=== PATIENT | male | born 1965 | race Caucasian/White ===

== ENCOUNTER 2020-04-16 10:26 | Inpatient (IN) | payer BC ==
[~2020-04-16] VITALS: Ht 182.9 cm; Wt 97.6 kg
[2020-04-16 11:33] LABS: BASOPHILS % (AUTO) 1 % (0-1); EOSINOPHILS % (AUTO) 0 % (1-7); LYMPHOCYTES % (AUTO) 26 % (22-44); MEAN CORPUSCULAR HEMOGLOBIN 32.5 pg (27.5-34.5); MEAN CORPUSCULAR HGB CONC 36.1 g/dL (33.2-36.2); MEAN PLATELET VOLUME 7.2 fL (7.4-10.4); MONOCYTES % (AUTO) 7 % (2-9); NEUTROPHILS % (AUTO) 67 % (42-75); PLATELET COUNT 215 x10^3/uL (130-400); RED BLOOD COUNT 4.69 x10^6/uL (4.38-5.82); RED CELL DISTRIBUTION WIDTH 12.4 % (9.4-14.8)
[2020-04-16 11:44] LABS: MD NO
[2020-04-16 11:45] LABS: ALBUMIN 3.5 g/dL (3.4-5.0); ANION GAP 8 mmol/L (5-15); CALCIUM 8.6 mg/dL (8.5-10.1); CHLORIDE 110 mmol/L (98-107)
[2020-04-16 11:48] LABS: ALANINE AMINOTRANSFERASE 86 U/L (12-78); ALKALINE PHOSPHATASE 96 U/L (45-117); BILIRUBIN,TOTAL 0.6 mg/dL (0.2-1.0); CREATININE 1.01 mg/dL (0.7-1.3); TOTAL PROTEIN 8.1 g/dL (6.4-8.2)
--- NOTE | 2020-04-16 12:00 | NUR ---
assumed care of pt. pt here for weakness, body aches, SOB and cough for a few days. pt reports that he has some family members that do not live with him that he has had exposure to that have tested COVID+ pt reports that he has been having a productive cough and that his is sick at home as well pt is hypoxic on RA, placed on O2 @ 2L [place] lab has been to bedside
[2020-04-16] MEDS ORDERED: CEFTRIAXONE PMX 1GM/50ML 50 ML IVPB ONE (13:00)
[2020-04-16] MEDS ORDERED: AZITHROMYCIN 500 MG in SODIUM CHLORIDE 0.9% 250 ML IV ONE (13:00)
[2020-04-16 13:18] LABS: D-DIMER (DIC) 0.54 ug/mlFEU (0.00-0.52); PROTIME 9.9 Seconds (9.6-11.5)
[2020-04-16 13:24] LABS: C-REACTIVE PROTEIN, QUANT 7.94 mg/dL (0.02-0.49)
--- NOTE | 2020-04-16 13:49 | NUR ---
pt to have ABX infusion report to Aishwarya DURAN for lunch
[2020-04-16] MEDS ORDERED: CEFTRIAXONE PMX 1GM/50ML 50 ML ONE (14:04)
--- NOTE | 2020-04-16 15:00 | NUR ---
pt resting in position of comfort. no family at bedside. awaiting admit orders and bed assignment
[2020-04-16] MEDS ORDERED: SODIUM CHLORIDE FLUSH 10ML SYR IVF PRN (16:00)
[2020-04-16] MEDS ORDERED: DOXYCYCLINE 100MG TABLET PO ONE (16:30)
[2020-04-16] MEDS ORDERED: TRAZODONE 50MG TABLET PO PRN (16:30)
[2020-04-16] MEDS ORDERED: ONDANSETRON 2MG/ML, 2ML IVPush PRN (16:30)
[2020-04-16] MEDS ORDERED: ENOXAPARIN 40 MG/0.4 ML SQ SCH (16:30)
[2020-04-16] MEDS ORDERED: GUAIFENESIN/DM 200-20MG, 10ML UDC PO PRN (16:30)
[2020-04-16] MEDS ORDERED: ACETAMINOPHEN 325 MG TABLET PO PRN (16:30)
--- NOTE | 2020-04-16 16:40 | NUR ---
pt has been placed on [employer] for comfort. awaiting delivery of hospital bed. pt updated on POC
[2020-04-16] MEDS ORDERED: REMDESIVIR 200 MG in SODIUM CHLORIDE 0.9% 250 ML IVPB ONE (17:30)
[2020-04-16] MEDS ORDERED: ACETAMINOPHEN 325 MG TABLET ONE (17:53)
--- NOTE | 2020-04-16 18:10 | NUR ---
ABX infusing. pt dozing intermittently. positioning for comfort and lights dimmed per request. pt medicated for fever pt education regarding pending Remdesivir infusion, pt agrees to receive medication
--- NOTE | 2020-04-16 19:09 | NUR ---
pt resting in position of comfort. awaiting bed assignment. no family at bedside report to Darcie DURAN
--- NOTE | 2020-04-16 19:10 | NUR ---
report received from micki lopes
[2020-04-16] MEDS ORDERED: KETOROLAC 30 MG/1 ML IM PRN (19:30)
[2020-04-16] MEDS ORDERED: MELATONIN 5 MG TABLET ONE (19:50)
[2020-04-16] MEDS ORDERED: GUAIFENESIN ER 600 MG TABLET ONE (19:50)
[2020-04-16] MEDS ORDERED: ASCORBIC ACID 500 MG TABLET ONE (19:50)
[2020-04-16] MEDS ORDERED: DEXAMETHASONE 4 MG/ML, 1ML ONE (19:50)
[2020-04-16] MEDS ORDERED: DOXYCYCLINE 100MG TABLET ONE (19:50)
[2020-04-16] MEDS: ASCORBIC ACID 500 MG TABLET PO SCH (20:00)
[2020-04-16] MEDS: MELATONIN 5 MG TABLET PO SCH (20:01)
[2020-04-16] MEDS: DEXAMETHASONE 4 MG/ML, 1ML IVPush SCH (20:01)
[2020-04-16] MEDS: GUAIFENESIN ER 600 MG TABLET PO SCH (20:01)
--- NOTE | 2020-04-16 20:14 | NUR ---
pt resting in [facility] on [facility] mattress. consent signed for remdisivir ivpb.
[2020-04-16] MEDS ORDERED: ENOXAPARIN 40 MG/0.4 ML ONE (21:29)
[2020-04-16] MEDS ORDERED: ENOXAPARIN 60 MG/0.6 ML ONE (21:42)
[2020-04-16] MEDS: ENOXAPARIN 60 MG/0.6 ML SQ SCH (21:43)
--- NOTE | 2020-04-16 21:46 | NUR ---
consent signed and placed with paper chart
[2020-04-16] MEDS ORDERED: OMNIPAQUE 350 MG/ML, 75ML BOTTLE ONE (22:00)
--- NOTE | 2020-04-16 22:30 | NUR ---
pt resting no needs at this time
--- NOTE | 2020-04-16 23:30 | NUR ---
pt resting, no needs at this time
--- NOTE | 2020-04-17 00:21 | NUR ---
pt resting, no needs at this time
--- NOTE | 2020-04-17 02:17 | NUR ---
pt sleeping, no needs at this time
--- NOTE | 2020-04-17 04:20 | NUR ---
pt on hospital bed. urinal provided 800 ml of dark/orange concentrated urone out
--- NOTE | 2020-04-17 05:30 | NUR ---
pt resting in bed, no needs at this time
[2020-04-17 05:45] LABS: ALBUMIN 2.9 g/dL (3.4-5.0); ANION GAP 5 mmol/L (5-15); CALCIUM 8.7 mg/dL (8.5-10.1); CHLORIDE 109 mmol/L (98-107)
[2020-04-17 05:48] LABS: ALANINE AMINOTRANSFERASE 72 U/L (12-78); ALKALINE PHOSPHATASE 84 U/L (45-117); BILIRUBIN,TOTAL 0.5 mg/dL (0.2-1.0); CREATININE 0.86 mg/dL (0.7-1.3); TOTAL PROTEIN 7.4 g/dL (6.4-8.2)
--- NOTE | 2020-04-17 07:10 | NUR ---
REPORT GIVEN TO KRISTI DURAN
--- NOTE | 2020-04-17 07:13 | NUR ---
[facility] HAND-OFF REPORT RECEIVED FROM ROGER DAWSON. ASSUMING CARE OF PATIENT.
[2020-04-17] MEDS ORDERED: DEXAMETHASONE 4 MG/ML, 1ML ONE (08:07)
[2020-04-17] MEDS ORDERED: ASCORBIC ACID 500 MG TABLET ONE (08:07)
[2020-04-17] MEDS ORDERED: CHOLECALCIFEROL 5,000u TAB ONE (08:07)
[2020-04-17] MEDS ORDERED: ZINC SULFATE 220 MG CAPSULE ONE (08:07)
[2020-04-17] MEDS ORDERED: GUAIFENESIN ER 600 MG TABLET ONE (08:08)
[2020-04-17] MEDS: CHOLECALCIFEROL 5,000u TAB PO SCH (08:15)
[2020-04-17] MEDS: DEXAMETHASONE 4 MG/ML, 1ML IVPush SCH (08:15)
[2020-04-17] MEDS: ASCORBIC ACID 500 MG TABLET PO SCH ×2 (08:15→18:45)
[2020-04-17] MEDS: GUAIFENESIN ER 600 MG TABLET PO SCH ×2 (08:15→20:39)
[2020-04-17] MEDS: ZINC SULFATE 220 MG CAPSULE PO SCH (08:15)
--- NOTE | 2020-04-17 08:20 | NUR ---
PT MEDICATED WITH MORNING MEDS. VS UPDATED AND WNL. PT REMAINS IN 3L O2 VIA NASAL CANNULA. PT RESTING WITH NO COMPLAINTS.
--- NOTE | 2020-04-17 10:47 | NUR ---
INCENTIVE SPIROMETER GIVEN TO PATIENT AND PATIENT INSTRUCTED ON USE.
[2020-04-17] MEDS ORDERED: CEFTRIAXONE PMX 1GM/50ML 50 ML ONE (11:35)
[2020-04-17] MEDS: CEFTRIAXONE PMX 1GM/50ML 50 ML IV SCH (11:38)
--- NOTE | 2020-04-17 12:27 | NUR ---
LUNCH SERVED TO PATIENT. ENCOURAGED PATIENT TO DRINK MORE WATER. PT RESTING WITH NO COMPLAINTS. CALL BUTTON WITHIN REACH.
[2020-04-17] MEDS ORDERED: GUAIFENESIN/DM 200-20MG, 10ML UDC ONE (12:30)
--- NOTE | 2020-04-17 13:49 | NUR ---
[facility] TELEPHONE HAND-OFF REPORT GIVEN TO ROGER TIM. PT READY TO GO HOSPITAL ROOM.
[2020-04-17] MEDS ORDERED: MULT-658 PO (15:10)
[2020-04-17] MEDS ORDERED: UBID1CAP43 PO (15:10)
[2020-04-17] MEDS ORDERED: FLUT9.9S16 NS (15:10)
[2020-04-17 15:23] VITALS: BP 129/68
[2020-04-17] MEDS: REMDESIVIR 100 MG in SODIUM CHLORIDE 0.9% 250 ML IVPB SCH (18:45)
[2020-04-17 20:27] VITALS: BP 103/64
[2020-04-17] MEDS: MELATONIN 5 MG TABLET PO SCH (20:39)
[2020-04-17] MEDS: ENOXAPARIN 60 MG/0.6 ML SQ SCH (20:40)
[2020-04-18 00:21] VITALS: BP 111/71
[2020-04-18 05:59] LABS: ALBUMIN 2.8 g/dL (3.4-5.0); ANION GAP 3 mmol/L (5-15); CALCIUM 8.7 mg/dL (8.5-10.1); CHLORIDE 112 mmol/L (98-107)
[2020-04-18 06:02] LABS: ALANINE AMINOTRANSFERASE 60 U/L (12-78); ALKALINE PHOSPHATASE 70 U/L (45-117); BILIRUBIN,TOTAL 0.4 mg/dL (0.2-1.0); CREATININE 0.91 mg/dL (0.7-1.3); TOTAL PROTEIN 6.8 g/dL (6.4-8.2)
[2020-04-18 06:46] VITALS: BP 97/47
[2020-04-18] MEDS: DEXAMETHASONE 4 MG/ML, 1ML IVPush SCH (09:00)
[2020-04-18] MEDS ORDERED: DEXAMETHASONE 4 MG/ML, 5ML ONE (09:11)
[2020-04-18] MEDS: ASCORBIC ACID 500 MG TABLET PO SCH ×2 (09:18→18:03)
[2020-04-18] MEDS: ZINC SULFATE 220 MG CAPSULE PO SCH (09:18)
[2020-04-18] MEDS: GUAIFENESIN ER 600 MG TABLET PO SCH ×2 (09:18→20:42)
[2020-04-18] MEDS: CHOLECALCIFEROL 5,000u TAB PO SCH (09:18)
[2020-04-18 12:41] VITALS: BP 95/61
[2020-04-18] MEDS: CEFTRIAXONE PMX 1GM/50ML 50 ML IV SCH (13:03)
[2020-04-18] MEDS: REMDESIVIR 100 MG in SODIUM CHLORIDE 0.9% 250 ML IVPB SCH (18:04)
[2020-04-18 19:40] VITALS: BP 117/67
[2020-04-18] MEDS: MELATONIN 5 MG TABLET PO SCH (20:43)
[2020-04-18] MEDS: ENOXAPARIN 60 MG/0.6 ML SQ SCH (20:54)
[2020-04-19 01:19] VITALS: BP 98/61
[2020-04-19 07:11] VITALS: BP 103/53
[2020-04-19 07:39] LABS: CHLORIDE 109 mmol/L (98-107)
[2020-04-19 07:47] LABS: ALANINE AMINOTRANSFERASE 59 U/L (12-78); ALBUMIN 2.8 g/dL (3.4-5.0); ALKALINE PHOSPHATASE 68 U/L (45-117); ANION GAP 6 mmol/L (5-15); BILIRUBIN,TOTAL 0.6 mg/dL (0.2-1.0); CREATININE 0.72 mg/dL (0.7-1.3)
[2020-04-19] MEDS ORDERED: DEXAMETHASONE 4 MG/ML, 5ML ONE (08:43)
[2020-04-19] MEDS: ASCORBIC ACID 500 MG TABLET PO SCH ×2 (08:55→18:26)
[2020-04-19] MEDS: GUAIFENESIN ER 600 MG TABLET PO SCH ×2 (08:55→20:38)
[2020-04-19] MEDS: ZINC SULFATE 220 MG CAPSULE PO SCH (08:55)
[2020-04-19] MEDS: DEXAMETHASONE 4 MG/ML, 1ML IVPush SCH (08:56)
[2020-04-19] MEDS: CHOLECALCIFEROL 5,000u TAB PO SCH (08:56)
[2020-04-19 12:29] VITALS: BP 97/62
[2020-04-19] MEDS: CEFTRIAXONE PMX 1GM/50ML 50 ML IV SCH (13:01)
[2020-04-19] MEDS: REMDESIVIR 100 MG in SODIUM CHLORIDE 0.9% 250 ML IVPB SCH (18:26)
[2020-04-19 19:11] VITALS: BP 99/60
[2020-04-19] MEDS: MELATONIN 5 MG TABLET PO SCH (20:38)
[2020-04-19] MEDS: ENOXAPARIN 60 MG/0.6 ML SQ SCH (20:38)
[2020-04-20 03:50] VITALS: BP 107/68
[2020-04-20 03:52] VITALS: BP 102/63
[2020-04-20 03:55] VITALS: BP 118/71
[2020-04-20 05:35] LABS: ALANINE AMINOTRANSFERASE 76 U/L (12-78); ANION GAP 4 mmol/L (5-15); CHLORIDE 108 mmol/L (98-107)
[2020-04-20 05:38] LABS: ALKALINE PHOSPHATASE 66 U/L (45-117); BILIRUBIN,TOTAL 0.5 mg/dL (0.2-1.0); CREATININE 0.82 mg/dL (0.7-1.3); TOTAL PROTEIN 7.2 g/dL (6.4-8.2)
[2020-04-20 07:27] VITALS: BP 99/64
[2020-04-20] MEDS: ASCORBIC ACID 500 MG TABLET PO SCH ×2 (08:19→17:21)
[2020-04-20] MEDS: GUAIFENESIN ER 600 MG TABLET PO SCH ×2 (08:19→20:02)
[2020-04-20] MEDS: DEXAMETHASONE 4 MG/ML, 1ML IVPush SCH (08:20)
[2020-04-20] MEDS: CHOLECALCIFEROL 5,000u TAB PO SCH (08:20)
[2020-04-20] MEDS: ZINC SULFATE 220 MG CAPSULE PO SCH (08:20)
[2020-04-20] MEDS: CEFTRIAXONE PMX 1GM/50ML 50 ML IV SCH (11:36)
[2020-04-20 14:54] VITALS: BP 123/63
[2020-04-20] MEDS: REMDESIVIR 100 MG in SODIUM CHLORIDE 0.9% 250 ML IVPB SCH (17:21)
[2020-04-20 19:52] VITALS: BP 111/55
[2020-04-20] MEDS: ENOXAPARIN 60 MG/0.6 ML SQ SCH (20:02)
[2020-04-20] MEDS: MELATONIN 5 MG TABLET PO SCH (20:02)
[2020-04-21 01:02] VITALS: BP 108/64
[2020-04-21 07:17] VITALS: BP 112/46
[2020-04-21] MEDS: DEXAMETHASONE 4 MG/ML, 1ML IVPush SCH (09:00)
[2020-04-21] MEDS ORDERED: MELA5TAB14 PO (09:23)
[2020-04-21] MEDS ORDERED: GUAI600T31 PO (09:23)
[2020-04-21] MEDS ORDERED: ZINC220C7 PO (09:23)
[2020-04-21] MEDS ORDERED: CHOL500045 PO (09:23)
[2020-04-21] MEDS ORDERED: ASCO500T9 PO (09:23)
[2020-04-21] MEDS ORDERED: DEXA6TAB6 PO (09:23)
[2020-04-21] MEDS ORDERED: DEXAMETHASONE 4 MG/ML, 5ML ONE (09:51)
[2020-04-21] MEDS: GUAIFENESIN ER 600 MG TABLET PO SCH (09:58)
[2020-04-21] MEDS: ZINC SULFATE 220 MG CAPSULE PO SCH (09:58)
[2020-04-21] MEDS: CHOLECALCIFEROL 5,000u TAB PO SCH (09:58)
[2020-04-21] MEDS: ASCORBIC ACID 500 MG TABLET PO SCH (09:58)
[2020-04-21 12:11] VITALS: BP 103/50
[2020-04-21] MEDS: CEFTRIAXONE PMX 1GM/50ML 50 ML IV SCH (12:55)
== END 2020-04-21 15:34 | disposition home or self-care (01) | DRG 177 ==
LOC: ED 13:17 → EDIP 15:54 → 4WST 04-17 14:05
PROVIDERS: ADMIT Hospitalist; ATTEND Hospitalist
PROC: XW033E5 Introduction of Remdesivir Anti-infective into Peripheral Vein, Percutaneous Approach, New Technology Group 5 (ICD-10-PCS; principal; 2020-04-16)
DX: U07.1 COVID-19 (principal); J12.89 Other viral pneumonia; J96.01 Acute respiratory failure with hypoxia; R79.89 Other specified abnormal findings of blood chemistry; R74.01 Elevation of levels of liver transaminase levels; M25.50 Pain in unspecified joint; M79.10 Myalgia, unspecified site
CPT/HCPCS: 36415; 71045; 71275; 80053; 82728; 83605; 83615; 84145; 85025; 85049; 85379; 85384; 85610; 85730; 86140; 87040; 87635; 93005; 96374; 99285; G0378; J0456; J0696; J1100; J1650; Q9967; J7050